=== PATIENT | male | born 1950 | race Caucasian/White ===

== ENCOUNTER 2017-07-28 15:23 | Emergency (ER) | payer MEDICARE, OTHER ==
[2017-07-28] MEDS ORDERED: FENT1PAT7 TD (15:44)
[2017-07-28] MEDS ORDERED: QUET-1 PO (15:47)
[2017-07-28] MEDS ORDERED: FLUO20CA39 PO (15:47)
[2017-07-28] MEDS ORDERED: OXYC-150 PO (15:47)
[2017-07-28] MEDS ORDERED: GABA100C PO (15:47)
[2017-07-28 16:34] LABS: BASOPHILS % (AUTO) 0.5 % (0-1); EOSINOPHILS # (AUTO) 0.2 X10'3 (0-0.9); EOSINOPHILS % (AUTO) 2.9 % (0-6); HEMATOCRIT 41.2 % (42.0-52.0); HEMOGLOBIN 13.6 g/dl (14.0-17.9); LYMPHOCYTES # (AUTO) 1.5 X10'3 (1.1-4.8); LYMPHOCYTES % (AUTO) 21.2 % (21-51); MEAN CORPUSCULAR HEMOGLOBIN 29.4 PG (27.0-31.0); MEAN CORPUSCULAR VOLUME 89.1 FL (78-98); MEAN PLATELET VOLUME 5.8 FL (7.4-10.4); MONOCYTES # (AUTO) 0.4 X10'3 (0-0.9); MONOCYTES % (AUTO) 5.9 % (2-12); NEUTROPHILS % (AUTO) 69.5 % (42-75); PLATELET COUNT 401 X10'3 (140-440); RED BLOOD COUNT 4.63 X10'6 (4.70-6.10); RED CELL DISTRIBUTION WIDTH 16.8 % (11.5-14.5); WHITE BLOOD COUNT 7.2 X10'3 (4.5-11.0)
[2017-07-28 17:00] LABS: ALANINE AMINOTRANSFERASE 25 U/L (12-78); ALBUMIN 3.5 G/DL (3.4-5.0); ALBUMIN/GLOBULIN RATIO 0.9 (1.1-1.5); ALKALINE PHOSPHATASE 82 IU/L (46-116); ANION GAP 11 (8-16); ASPARTATE AMINO TRANSFERASE 22 U/L (10-37); BILIRUBIN,TOTAL 0.3 MG/DL (0.1-1.0); BLOOD UREA NITROGEN 9 MG/DL (7-18); BUN/CREATININE RATIO 9.8 (5.4-32.0); CALCIUM 8.4 MG/DL (8.5-10.1); CHLORIDE 101 MMOL/L (99-107); CREATININE 0.92 MG/DL (0.60-1.10); GLUCOSE 126 MG/DL (70-104); POTASSIUM 3.7 MMOL/L (3.5-5.1); SODIUM 140 MMOL/L (135-145); TOTAL CARBON DIOXIDE 27.8 MMOL/L (24-32); TOTAL PROTEIN 7.4 G/DL (6.4-8.2); eGFR 83 ML/MIN
[2017-07-28 17:02] LABS: ACETAMINOPHEN < 2.0 UG/ML (10-30)
[2017-07-28] MEDS: polyethylene glycol 3350 17gm powd pack PO SCH ×2 (17:15→17:34)
[2017-07-28] MEDS ORDERED: LORazepam 1 MG tablet PO PRN (20:20)
[2017-07-28] MEDS ORDERED: quetiapine 100mg tablet PO SCH (21:00)
[2017-07-28] MEDS: oxyCODONE/APAP 10/325mg tablet PO SCH (23:45)
[2017-07-29] MEDS ORDERED: fentaNYL 100MCG/hour patch.TD72 TD SCH (08:00)
[2017-07-29] MEDS ORDERED: FLUoxetine 20mg capsule PO SCH (08:00)
[2017-07-29] MEDS ORDERED: gabapentin 100mg capsule PO SCH (08:00)
[2017-07-29 08:12] LABS: CLARITY,URINE SLIGHTLY CLOUDY (Clear); COLOR,URINE YELLOW (Yellow); GLUCOSE, URINE NEGATIVE (Neg); KETONES,URINE NEGATIVE (Neg); LEUKOCYTE ESTERASE ,URINE NEGATIVE (Neg); NITRITES, URINE POSITIVE (Neg); OCCULT BLOOD,URINE NEGATIVE (Neg); PH,URINE 6.5 (4.8-8.0); PROTEIN,URINE NEGATIVE (Neg); UROBILINOGEN,URINE 0.2 E.U/dL (0.2-1.0)
[2017-07-29 08:15] LABS: UA COLLECTION TYPE STRAIGHT CATH
[2017-07-29] MEDS: oxyCODONE/APAP 10/325mg tablet PO SCH (08:19)
[2017-07-29 08:31] LABS: MUCUS STRANDS MODERATE /LPF (Neg); SQUAMOUS EPITHELIAL CELL,UR FEW /LPF (FEW); URINE AMPHETAMINE SCREEN NEGATIVE (Neg); URINE BARBITUATE SCREEN NEGATIVE (Neg); URINE BENZODIAZEPINES SCREEN POSITIVE (Neg); URINE CANNABINOID SCREEN NEGATIVE (Neg); URINE COCAINE SCREEN NEGATIVE (Neg); URINE METHADONE SCREEN NEGATIVE (Neg); URINE OPIATE SCREEN NEGATIVE (Neg); URINE PHENCYCLIDINE SCREEN NEGATIVE (Neg)
[2017-07-29 08:37] LABS: BACTERIA,URINE 3+ /HPF (Neg); RBC,URINE 0-2 /HPF (0-2); TRANSITIONAL EPI CELLS,URINE FEW /HPF; WBC,URINE 0-4 /HPF (0-4)
[2017-07-29 12:44] VITALS: BP 116/78
== END 2017-07-29 12:54 ==
LOC: ER 15:24
DX: R45.851 Suicidal ideations (principal); Z79.899 Other long term (current) drug therapy; Z88.0 Allergy status to penicillin
CPT/HCPCS: 36415; 80053; 80305; 80320; 80329; 81001; 84443; 85025; 99285; A4353

== ENCOUNTER 2017-08-01 09:07 | Inpatient (IN) | payer MEDICARE, OTHER ==
[~2017-08-01] VITALS: Ht 193 cm; Wt 86.0 kg
[2017-08-01 07:30] VITALS: BP 146/74
[~2017-08-01 09:07] MED LIST: FENT1PAT7 TD; FLUO20CA39 PO; GABA100C PO; OXYC-150 PO; QUET-1 PO; normal saline 1000ml 1,000 ML IV ONE
[2017-08-01] MEDS ORDERED: mag hydrox/Alum hydrox/simeth 30ml oral suspension PO PRN (09:35)
[2017-08-01] MEDS: K and/or MAG REPLACEMENT MC SCH (09:35)
[2017-08-01] MEDS ORDERED: HYDROcodone/acetaminophen 5mg/325mg tablet PO PRN (09:35)
[2017-08-01] MEDS ORDERED: magnesium Cl slow-release 64mg tablet PO PRN (09:35)
[2017-08-01] MEDS ORDERED: ondansetron/PF 4mg/2ml inj IV PRN (09:35)
[2017-08-01] MEDS ORDERED: acetaminophen 325mg tablet PO PRN ×2 (09:35)
[2017-08-01] MEDS ORDERED: potassium Cl 40MEQ/NS 500ml 500 ML IV PRN ×2 (09:35)
[2017-08-01] MEDS ORDERED: potassium Cl 20 mEq SR tablet PO PRN ×2 (09:35)
[2017-08-01] MEDS ORDERED: HYDROcodone/acetaminophen 10/325mg tab PO PRN (09:35)
[2017-08-01] MEDS ORDERED: magnesium 4gm in 100ml NS 100 ML IV PRN (09:35)
[2017-08-01] MEDS ORDERED: magnesium 2GM in 50ml NS 50 ML IV PRN (09:35)
[2017-08-01] MEDS ORDERED: haloperidol lactate 5mg/ml inj IM PRN (10:15)
[2017-08-01] MEDS ORDERED: thiamine 100mg/ml 2ml inj. IV ONE (10:15)
[2017-08-01] MEDS ORDERED: dextrose 50%-water 50ml dispensing syringe IV PRN (10:15)
[2017-08-01] MEDS ORDERED: LORazepam 2 mg/ml vial IV PRN (10:15)
[2017-08-01] MEDS ORDERED: haloperidol 5mg tablet PO PRN (10:15)
[2017-08-01] MEDS ORDERED: iohexol 300mg/ml 100ml inj. ONE (10:26)
[2017-08-01 10:42] LABS: CLARITY,URINE CLEAR (Clear); COLOR,URINE YELLOW (Yellow); GLUCOSE, URINE NEGATIVE (Neg); KETONES,URINE NEGATIVE (Neg); LEUKOCYTE ESTERASE ,URINE SMALL (Neg); NITRITES, URINE NEGATIVE (Neg); OCCULT BLOOD,URINE NEGATIVE (Neg); PROTEIN,URINE NEGATIVE (Neg); UROBILINOGEN,URINE 0.2 E.U/dL (0.2-1.0)
[2017-08-01 10:47] LABS: UA COLLECTION TYPE URINAL
[2017-08-01 10:48] LABS: BACTERIA,URINE FEW /HPF (Neg); MUCUS STRANDS NONE SEEN /LPF (Neg); RBC,URINE 0-2 /HPF (0-2); SQUAMOUS EPITHELIAL CELL,UR NONE SEEN /LPF (FEW)
[2017-08-01 11:00] VITALS: BP 105/60
[2017-08-01] MEDS: levoFLOXACIN-Levaquin 750MG/D5 150 ML IV SCH (11:19)
[2017-08-01] MEDS: normal saline 1000ml 1,000 ML IV SCH ×2 (11:19→19:35)
[2017-08-01] MEDS: cefTRIAXone 1g/NS 100ml IVPB 100 ML IV SCH (11:20)
[2017-08-01 12:01] LABS: ALBUMIN 2.9 G/DL (3.4-5.0); ANION GAP 4 (8-16); BLOOD UREA NITROGEN 11 MG/DL (7-18); BUN/CREATININE RATIO 9.3 (5.4-32.0); CALCIUM 8.3 MG/DL (8.5-10.1); CHLORIDE 101 MMOL/L (99-107); CREATININE 1.18 MG/DL (0.60-1.10); GLUCOSE 108 MG/DL (70-104); MAGNESIUM 1.8 MG/DL (1.5-2.4); PHOSPHORUS 3.7 MG/DL (2.3-4.5); POTASSIUM 4.7 MMOL/L (3.5-5.1); SODIUM 134 MMOL/L (135-145); TOTAL CARBON DIOXIDE 28.6 MMOL/L (24-32); eGFR 62 ML/MIN
[2017-08-01] MEDS ORDERED: thiamine 100mg tablet PO ONE (14:15)
[2017-08-01] MEDS: vancomycin/NS 1 GM ADD-VANTAGE 250 ML IV SCH ×2 (14:34→16:54)
[2017-08-01 15:00] VITALS: BP 100/51
[2017-08-01] MEDS ORDERED: oxyCODONE/APAP 10/325mg tablet PO SCH (16:00)
[2017-08-01] MEDS: magnesium hydroxide 30ml (MOM) UD suspension PO PRN (16:59)
[2017-08-01 18:00] VITALS: BP 106/64
[2017-08-01] MEDS ORDERED: temazepam 15mg capsule PO PRN (21:00)
[2017-08-01] MEDS: quetiapine 100mg tablet PO SCH (21:37)
[2017-08-01 22:00] VITALS: BP 138/78
[2017-08-02] MEDS ORDERED: vancomycin inj 1,250 MG in normal saline 250ml IV soln 250 ML IV SCH (01:00)
[2017-08-02] MEDS: normal saline 1000ml 1,000 ML IV SCH ×2 (01:48→15:35)
[2017-08-02 02:00] VITALS: BP 111/70
[2017-08-02 06:00] VITALS: BP 100/57
[2017-08-02 06:15] LABS: BASOPHILS % (AUTO) 0.2 % (0-1); EOSINOPHILS # (AUTO) 0.2 X10'3 (0-0.9); EOSINOPHILS % (AUTO) 2.5 % (0-6); HEMOGLOBIN 10.1 g/dl (14.0-17.9); LYMPHOCYTES # (AUTO) 1.5 X10'3 (1.1-4.8); LYMPHOCYTES % (AUTO) 15.9 % (21-51); MEAN CORPUSCULAR HEMOGLOBIN 29.3 PG (27.0-31.0); MEAN CORPUSCULAR HGB CONC 32.8 % (33.0-36.5); MEAN CORPUSCULAR VOLUME 89.5 FL (78-98); MEAN PLATELET VOLUME 6.6 FL (7.4-10.4); MONOCYTES # (AUTO) 0.5 X10'3 (0-0.9); MONOCYTES % (AUTO) 5.8 % (2-12); NEUTROPHILS # (AUTO) 7.1 X10'3 (1.8-7.7); NEUTROPHILS % (AUTO) 75.6 % (42-75); PLATELET COUNT 237 X10'3 (140-440); RED BLOOD COUNT 3.46 X10'6 (4.70-6.10); RED CELL DISTRIBUTION WIDTH 16.9 % (11.5-14.5); WHITE BLOOD COUNT 9.4 X10'3 (4.5-11.0)
[2017-08-02 07:03] LABS: ALANINE AMINOTRANSFERASE 17 U/L (12-78); ALBUMIN 2.3 G/DL (3.4-5.0); ALBUMIN/GLOBULIN RATIO 0.7 (1.1-1.5); ALKALINE PHOSPHATASE 54 IU/L (46-116); ANION GAP 4 (8-16); ASPARTATE AMINO TRANSFERASE 16 U/L (10-37); BILIRUBIN,TOTAL 0.4 MG/DL (0.1-1.0); BLOOD UREA NITROGEN 11 MG/DL (7-18); BUN/CREATININE RATIO 10.7 (5.4-32.0); CALCIUM 8.1 MG/DL (8.5-10.1); CHLORIDE 105 MMOL/L (99-107); CREATININE 1.03 MG/DL (0.60-1.10); GLUCOSE 102 MG/DL (70-104); MAGNESIUM 1.9 MG/DL (1.5-2.4); POTASSIUM 4.1 MMOL/L (3.5-5.1); SODIUM 137 MMOL/L (135-145); TOTAL CARBON DIOXIDE 28.5 MMOL/L (24-32); TOTAL PROTEIN 5.6 G/DL (6.4-8.2); eGFR 72 ML/MIN
[2017-08-02] MEDS: levoFLOXACIN-Levaquin 750MG/D5 150 ML IV SCH (07:41)
[2017-08-02] MEDS: cefTRIAXone 1g/NS 100ml IVPB 100 ML IV SCH (07:41)
[2017-08-02] MEDS: FLUoxetine 20mg capsule PO SCH (07:41)
[2017-08-02] MEDS: gabapentin 100mg capsule PO SCH (07:42)
[2017-08-02] MEDS: LACTOBACILLUS RHAMNOSUS GG 15 billion unit sprinkle caps PO SCH (07:42)
[2017-08-02] MEDS: K and/or MAG REPLACEMENT MC SCH (08:00)
[2017-08-02] MEDS ORDERED: fentaNYL 75 MCG/hour patch.TD72 TD SCH (09:00)
[2017-08-02 11:00] VITALS: BP 121/72
[2017-08-02] MEDS: magnesium hydroxide 30ml (MOM) UD suspension PO PRN (13:54)
[2017-08-02 15:00] VITALS: BP 130/78
[2017-08-02 18:00] VITALS: BP 130/86
[2017-08-02 22:00] VITALS: BP 106/62
[2017-08-02] MEDS: quetiapine 100mg tablet PO SCH (22:00)
[2017-08-03] MEDS ORDERED: VANCOMYCIN LEVEL IV ONE (00:30)
[2017-08-03] MEDS: normal saline 1000ml 1,000 ML IV SCH ×2 (00:35→11:35)
[2017-08-03 05:15] LABS: BASOPHILS % (AUTO) 0.5 % (0-1); EOSINOPHILS # (AUTO) 0.3 X10'3 (0-0.9); EOSINOPHILS % (AUTO) 5.4 % (0-6); HEMATOCRIT 32.7 % (42.0-52.0); HEMOGLOBIN 10.7 g/dl (14.0-17.9); LYMPHOCYTES # (AUTO) 1.4 X10'3 (1.1-4.8); LYMPHOCYTES % (AUTO) 24.5 % (21-51); MEAN CORPUSCULAR HEMOGLOBIN 29.1 PG (27.0-31.0); MEAN CORPUSCULAR HGB CONC 32.8 % (33.0-36.5); MEAN CORPUSCULAR VOLUME 88.9 FL (78-98); MEAN PLATELET VOLUME 6.4 FL (7.4-10.4); MONOCYTES # (AUTO) 0.5 X10'3 (0-0.9); NEUTROPHILS # (AUTO) 3.6 X10'3 (1.8-7.7); NEUTROPHILS % (AUTO) 60.6 % (42-75); PLATELET COUNT 253 X10'3 (140-440); RED BLOOD COUNT 3.68 X10'6 (4.70-6.10); RED CELL DISTRIBUTION WIDTH 16.3 % (11.5-14.5); WHITE BLOOD COUNT 5.9 X10'3 (4.5-11.0)
[2017-08-03 06:00] VITALS: BP 127/79
[2017-08-03 06:16] LABS: ALANINE AMINOTRANSFERASE 14 U/L (12-78); ALBUMIN 2.4 G/DL (3.4-5.0); ALBUMIN/GLOBULIN RATIO 0.7 (1.1-1.5); ALKALINE PHOSPHATASE 58 IU/L (46-116); ANION GAP 5 (8-16); ASPARTATE AMINO TRANSFERASE 11 U/L (10-37); BILIRUBIN,TOTAL 0.3 MG/DL (0.1-1.0); BLOOD UREA NITROGEN 8 MG/DL (7-18); BUN/CREATININE RATIO 7.8 (5.4-32.0); CALCIUM 8.2 MG/DL (8.5-10.1); CHLORIDE 107 MMOL/L (99-107); CREATININE 1.02 MG/DL (0.60-1.10); GLUCOSE 86 MG/DL (70-104); MAGNESIUM 1.8 MG/DL (1.5-2.4); POTASSIUM 4.2 MMOL/L (3.5-5.1); SODIUM 138 MMOL/L (135-145); TOTAL CARBON DIOXIDE 25.7 MMOL/L (24-32); TOTAL PROTEIN 5.9 G/DL (6.4-8.2); eGFR 73 ML/MIN
[2017-08-03] MEDS: K and/or MAG REPLACEMENT MC SCH (07:44)
[2017-08-03] MEDS: LACTOBACILLUS RHAMNOSUS GG 15 billion unit sprinkle caps PO SCH (07:53)
[2017-08-03] MEDS: FLUoxetine 20mg capsule PO SCH (07:54)
[2017-08-03] MEDS: gabapentin 100mg capsule PO SCH (07:54)
[2017-08-03] MEDS: cefTRIAXone 1g/NS 100ml IVPB 100 ML IV SCH (07:56)
[2017-08-03] MEDS ORDERED: folic acid 1mg tablet PO SCH (08:00)
[2017-08-03] MEDS ORDERED: thiamine 100mg tablet PO SCH (08:00)
[2017-08-03] MEDS ORDERED: multivitamins, therapeutics tablet PO SCH (08:00)
[2017-08-03] MEDS: magnesium hydroxide 30ml (MOM) UD suspension PO PRN (08:03)
[2017-08-03] MEDS: levoFLOXACIN-Levaquin 750MG/D5 150 ML IV SCH (09:37)
[2017-08-03] MEDS ORDERED: LORazepam 1 MG tablet PO PRN (10:15)
[2017-08-03] MEDS ORDERED: LORazepam 2 mg/ml vial IV PRN (10:15)
[2017-08-03 11:00] VITALS: BP 147/85
[2017-08-03] MEDS ORDERED: FOLI1TAB16 PO (12:24)
[2017-08-03] MEDS ORDERED: MULT-1179 PO (12:24)
[2017-08-03] MEDS ORDERED: THI100T PO (12:24)
[2017-08-03] MEDS ORDERED: LEVO500T89 PO (12:24)
[2017-08-05] MEDS ORDERED: LORazepam 1 MG tablet PO PRN (10:15)
[2017-08-05] MEDS ORDERED: LORazepam 2 mg/ml vial IV PRN (10:15)
== END 2017-08-03 14:50 | disposition home or self-care (01) | DRG 871 ==
LOC: PCU 3S 09:07
PROVIDERS: ADMIT Internal Medicine; ATTEND Family Medicine
DX: A41.9 Sepsis, unspecified organism (principal); G93.40 Encephalopathy, unspecified; N17.9 Acute kidney failure, unspecified; J18.9 Pneumonia, unspecified organism; N39.0 Urinary tract infection, site not specified; E87.1 Hypo-osmolality and hyponatremia; F10.20 Alcohol dependence, uncomplicated; F32.9 Major depressive disorder, single episode, unspecified; G89.29 Other chronic pain; D64.9 Anemia, unspecified; B95.7 Other staphylococcus as the cause of diseases classified elsewhere; Z96.653 Presence of artificial knee joint, bilateral; Z88.0 Allergy status to penicillin; Z79.899 Other long term (current) drug therapy
CPT/HCPCS: 36415; 70470; 80048; 80053; 80202; 81001; 83735; 84100; 84145; 84443; 85025; 87040; 87070; 87077; 87088; 87186; 87502; 87503; 93306; J0696; J1956; J3370; J3411; J7030; Q9967